=== PATIENT | female | born 1970 | race Caucasian/White ===

== ENCOUNTER 2016-10-27 12:53 | Inpatient (IN) | payer BC, MEDICAID ==
[~2016-10-27] VITALS: Ht 165.1 cm; Wt 126.6 kg
[2016-10-27 13:15] VITALS: BP_SYST 249
[2016-10-27] MEDS ORDERED: NACL 0.9% 1,000 ML IV ONE (14:13)
[2016-10-27] MEDS ORDERED: ONDANSETRON HCL 4 MG/2 ML VIAL ONE (14:14)
[2016-10-27] MEDS ORDERED: ONDANSETRON HCL 4 MG/2 ML VIAL IVP ONE (14:15)
[2016-10-27] MEDS ORDERED: HYDROmorphone 1 MG INJ. 1 MG/ML AMPUL IVP ONE (14:15)
[2016-10-27 14:36] LABS: CALCIUM 9.1 mg/dL (8.4-11.0); CREATININE 0.81 mg/dL (0.55-1.30)
[2016-10-27 14:40] LABS: TOTAL BILIRUBIN 0.5 mg/dL (0.0-1.0)
[2016-10-27] MEDS ORDERED: cloNIDine HCL 0.1 MG TABLET PO ONE (14:45)
[2016-10-27 14:52] LABS: BASOPHILS # (AUTO) 0.1 K/uL (0.0-0.2); BASOPHILS % (AUTO) 0.6 % (0.0-2.0); EOSINOPHILS # (AUTO) 0.1 K/uL (0.0-0.4); EOSINOPHILS % (AUTO) 0.7 % (0.0-4.0); HEMATOCRIT 48.6 % (36-48); HEMOGLOBIN 15.6 g/dL (12.0-16.0); LYMPHOCYTES # (AUTO) 1.4 K/uL (1.0-5.5); LYMPHOCYTES % (AUTO) 12.1 % (20.5-51.5); MEAN CORPUSCULAR HEMOGLOBIN 26 pg (27-31); MEAN CORPUSCULAR HGB CONC 32 % (32-36); MEAN CORPUSCULAR VOLUME 80 fL (79.0-98.0); MONOCYTES # (AUTO) 0.3 K/uL (0.0-1.0); MONOCYTES % (AUTO) 2.2 % (1.7-9.3); NEUTROPHILS # (AUTO) 9.6 K/uL (1.8-7.7); NEUTROPHILS % (AUTO) 84.4 % (40.0-70.0); PLATELET COUNT (AUTO) 311 K/uL (130-430); RED CELL DISTRIBUTION WIDTH 16.3 % (9.0-15.0); WHITE BLOOD COUNT (AUTO) 11.5 K/uL (4.8-10.8)
[2016-10-27] MEDS ORDERED: LORazepam 2 MG/ML VIAL IVP PRN (16:45)
[2016-10-27] MEDS: LEVOFLOXACIN 500 MG/D5W 100 ML IV SCH (16:45)
[2016-10-27] MEDS ORDERED: METOPROLOL TARTRATE 5 MG/5 ML VIAL IVP ONE (17:00)
[2016-10-27 17:48] VITALS: BP_SYST 245
[2016-10-27] MEDS ORDERED: ENOXAPARIN SODIUM 40 MG/0.4 ML SYRINGE SUBCUT ONE (18:30)
[2016-10-27] MEDS ORDERED: hydrALAZINE HCL 20 MG/ML VIAL ONE (19:09)
[2016-10-27] MEDS: hydrALAZINE HCL 20 MG/ML VIAL IVP PRN (19:11)
[2016-10-27] MEDS ORDERED: hydrALAZINE HCL 20 MG/ML VIAL IVP ONE (19:45)
[2016-10-27 21:00] VITALS: BP_SYST 161
[2016-10-27] MEDS: MORPHINE 2 MG/ML INJ. SYRINGE IVP PRN (21:30)
[2016-10-27] MEDS: D5/0.45 NS 1,000 ML IV SCH (23:14)
[2016-10-28 00:45] VITALS: BP_SYST 167
[2016-10-28] MEDS ORDERED: GASTROGRAFIN 120 ML ONE ×2 (00:57→08:38)
[2016-10-28 04:02] VITALS: BP_SYST 160
[2016-10-28 07:01] LABS: CALCIUM 8.6 mg/dL (8.4-11.0); CREATININE 0.8 mg/dL (0.55-1.30); POTASSIUM 3.6 mmol/L (3.5-5.1)
[2016-10-28 07:02] LABS: TOTAL BILIRUBIN 0.6 mg/dL (0.0-1.0); TOTAL PROTEIN, SERUM 7.3 g/dL (6.4-8.3)
[2016-10-28 07:04] LABS: BASOPHILS # (AUTO) 0.1 K/uL (0.0-0.2); BASOPHILS % (AUTO) 0.5 % (0.0-2.0); EOSINOPHILS # (AUTO) 0.1 K/uL (0.0-0.4); EOSINOPHILS % (AUTO) 1.4 % (0.0-4.0); HEMATOCRIT 41.6 % (36-48); HEMOGLOBIN 13.4 g/dL (12.0-16.0); LYMPHOCYTES # (AUTO) 2.7 K/uL (1.0-5.5); LYMPHOCYTES % (AUTO) 26.4 % (20.5-51.5); MEAN CORPUSCULAR HEMOGLOBIN 26 pg (27-31); MEAN CORPUSCULAR HGB CONC 32 % (32-36); MEAN CORPUSCULAR VOLUME 80 fL (79.0-98.0); MONOCYTES # (AUTO) 0.8 K/uL (0.0-1.0); MONOCYTES % (AUTO) 7.9 % (1.7-9.3); NEUTROPHILS # (AUTO) 6.7 K/uL (1.8-7.7); NEUTROPHILS % (AUTO) 63.8 % (40.0-70.0); PLATELET COUNT (AUTO) 315 K/uL (130-430); RED BLOOD CELL COUNT(AUTO) 5.21 MIL/uL (4.2-6.2); RED CELL DISTRIBUTION WIDTH 16.6 % (9.0-15.0); WHITE BLOOD COUNT (AUTO) 10.4 K/uL (4.8-10.8)
[2016-10-28] MEDS: hydrALAZINE HCL 20 MG/ML VIAL IVP PRN ×3 (08:16→18:28)
[2016-10-28 08:23] VITALS: BP_SYST 184
[2016-10-28] MEDS: ONDANSETRON HCL 4 MG/2 ML VIAL IVP PRN ×3 (09:57→23:27)
[2016-10-28] MEDS: ENOXAPARIN SODIUM 40 MG/0.4 ML SYRINGE SUBCUT SCH (10:06)
[2016-10-28 12:25] VITALS: BP_SYST 209
[2016-10-28] MEDS ORDERED: cloNIDine HCL 0.1 MG TABLET PO PRN (14:45)
[2016-10-28] MEDS: MORPHINE 2 MG/ML INJ. SYRINGE IVP PRN (15:35)
[2016-10-28] MEDS: LEVOFLOXACIN 500 MG/D5W 100 ML IV SCH (17:33)
[2016-10-28 20:00] VITALS: BP_SYST 164
[2016-10-28] MEDS: LABETALOL HCL 100 MG TABLET PO SCH (23:28)
[2016-10-28 23:49] VITALS: BP_SYST 183
[2016-10-29 03:59] VITALS: BP_SYST 175
[2016-10-29] MEDS: D5/0.45 NS 1,000 ML IV SCH (06:18)
[2016-10-29 06:30] LABS: BASOPHILS % (AUTO) 0.4 % (0.0-2.0); EOSINOPHILS # (AUTO) 0.1 K/uL (0.0-0.4); EOSINOPHILS % (AUTO) 1.3 % (0.0-4.0); HEMATOCRIT 39.5 % (36-48); HEMOGLOBIN 12.9 g/dL (12.0-16.0); LYMPHOCYTES % (AUTO) 22.4 % (20.5-51.5); MEAN CORPUSCULAR HEMOGLOBIN 26 pg (27-31); MEAN CORPUSCULAR HGB CONC 33 % (32-36); MEAN CORPUSCULAR VOLUME 80 fL (79.0-98.0); MONOCYTES # (AUTO) 0.9 K/uL (0.0-1.0); MONOCYTES % (AUTO) 9.9 % (1.7-9.3); NEUTROPHILS # (AUTO) 6.1 K/uL (1.8-7.7); PLATELET COUNT (AUTO) 296 K/uL (130-430); RED BLOOD CELL COUNT(AUTO) 4.94 MIL/uL (4.2-6.2); RED CELL DISTRIBUTION WIDTH 16.8 % (9.0-15.0); WHITE BLOOD COUNT (AUTO) 9.1 K/uL (4.8-10.8)
[2016-10-29 06:51] LABS: CALCIUM 8.8 mg/dL (8.4-11.0); POTASSIUM 3.1 mmol/L (3.5-5.1); TOTAL BILIRUBIN 0.5 mg/dL (0.0-1.0); TOTAL PROTEIN, SERUM 7.1 g/dL (6.4-8.3)
[2016-10-29] MEDS: LABETALOL HCL 100 MG TABLET PO SCH (07:59)
[2016-10-29 08:00] VITALS: BP_SYST 188
[2016-10-29] MEDS: ENOXAPARIN SODIUM 40 MG/0.4 ML SYRINGE SUBCUT SCH (08:00)
[2016-10-29] MEDS: hydrALAZINE HCL 20 MG/ML VIAL IVP PRN (08:01)
[2016-10-29] MEDS: ONDANSETRON HCL 4 MG/2 ML VIAL IVP PRN ×2 (08:08→14:21)
[2016-10-29] MEDS ORDERED: NITROGLYCERIN 0.4 MG/HR PATCH.TD24 TD SCH (09:00)
[2016-10-29] MEDS ORDERED: POTASSIUM CHLORIDE 20 MEQ TAB.PRT.SR PO ONE (12:45)
[2016-10-29] MEDS ORDERED: ACETAMINOPHEN 325 MG TABLET PO PRN (12:45)
[2016-10-29 12:48] VITALS: BP_SYST 118
[2016-10-29 12:54] VITALS: BP_SYST 118
== END 2016-10-29 14:35 | disposition home or self-care (01) | DRG 254 ==
LOC: SED 12:53 → STU 16:35
DX: K43.0 Incisional hernia with obstruction, without gangrene (principal); K56.60 Unspecified intestinal obstruction; Z68.42 Body mass index [BMI] 45.0-49.9, adult; I10 Essential (primary) hypertension; E66.01 Morbid (severe) obesity due to excess calories; E11.9 Type 2 diabetes mellitus without complications; F17.210 Nicotine dependence, cigarettes, uncomplicated; Z86.73 Personal history of transient ischemic attack (TIA), and cerebral infarction without residual deficits; Z88.0 Allergy status to penicillin; Z90.49 Acquired absence of other specified parts of digestive tract
CPT/HCPCS: 36415; 71010; 74020-TC; 74250-TC; 80048; 80053; 82150-TC; 83605; 83690-TC; 85025; 85610-TC; 85730-TC; 87040-TC; 96361; 96374; 96375; 99285; J0360; J1170; J1650; J1956; J2060; J2270; J2405; J3490; J7030; Q9963

== ENCOUNTER 2020-02-12 20:06 | Emergency (ER) | payer MEDICAID ==
[~2020-02-12] VITALS: Ht 157.5 cm; Wt 113.4 kg
[2020-02-12 20:15] VITALS: BP_SYST 155
[2020-02-12] MEDS ORDERED: FAMOTIDINE 20 MG TABLET PO ONE (20:45)
[2020-02-12] MEDS ORDERED: DIPHENHYDRAMINE INJ 50 MG/ML VIAL IM ONE (20:45)
[2020-02-12] MEDS ORDERED: methylPREDNISolone SOD SUCC 500 MG/VIAL (Solu-MEDROL) IV ONE (20:45)
[2020-02-12] MEDS ORDERED: DIPHENHYDRAMINE INJ 50 MG/ML VIAL IVP ONE (20:45)
[2020-02-12] MEDS ORDERED: FAMOTIDINE PF 20 MG/2 ML VIAL IVP ONE (20:45)
[2020-02-12] MEDS ORDERED: methylPREDNISolone SOD SUCC/PF 62.5 MG/ML VIAL IM ONE (20:45)
[2020-02-12 20:57] VITALS: BP_SYST 155
== END 2020-02-12 20:55 | disposition home or self-care (01) ==
LOC: SED 20:06
DX: R21 Rash and other nonspecific skin eruption (principal); I10 Essential (primary) hypertension; E07.9 Disorder of thyroid, unspecified; Z86.73 Personal history of transient ischemic attack (TIA), and cerebral infarction without residual deficits; Z88.0 Allergy status to penicillin
CPT/HCPCS: 96372; 99284